=== PATIENT | female | born 1960 | race Two or more races ===

== ENCOUNTER 2021-09-03 06:23 | Day surgery (SDC) | payer OTHER ==
[~2021-09-03] VITALS: Ht 157.5 cm; Wt 65.8 kg
[~2021-09-03 06:23] MED LIST: COZAAR25 MG PO
[2021-09-03] MEDS ORDERED: IBU600 MG PO (08:43)
== END 2021-09-03 14:10 | disposition home or self-care (01) ==
LOC: CIR.AMB 06:23
PROVIDERS: ATTEND Obstetrics & Gynecology Gynecology
DX: N84.0 Polyp of corpus uteri (principal); I10 Essential (primary) hypertension; Z20.822 Contact with and (suspected) exposure to COVID-19